=== PATIENT | male | born 1955 | race Caucasian/White ===

== ENCOUNTER 2020-01-30 09:30 | Day surgery (SDC) | payer OTHER ==
[~2020-01-30] VITALS: Ht 177.8 cm; Wt 99.8 kg
[2020-01-30] VITALS (8 sets, daily range): BP systolic 116–132; BP diastolic 72–81
[2020-01-30] MEDS ORDERED: Midazolam 2mg/2ml Inj ONE (10:31)
--- NOTE | 2020-01-30 10:51 | Short Stay Surgery H&P ---
History of Present Illness History of Present Illness Chief Complaint see attached HPI Bubba Wilburn is a 64 year old male who was admitted on for Blood In Stool Patient History Allergies: Coded Allergies: No Known Allergies (Unverified , 01/29/20) Physical Exam Vital Signs Last Vital Signs Date Time Temp Pulse Resp B/P (MAP) Pulse Ox O2 Delivery O2 Flow Rate FiO2 01/30/20 10:31 Room Air 01/30/20 10:04 97.4 51 18 127/79 95 Labs Laboratory Tests Test 01/30/20 10:09 POC Whole Blood Glucose 117 MG/DL (74-106) H Plan Attestation Are the patient's medical conditions optimized for surgery? Deandra Wilde MD Jan 30, 2020 10:51
--- NOTE | 2020-01-30 10:51 | Pre-Procedure Note/Attestation ---
Pre-Procedure Note/Attestation Complete Prior to Procedure Planned Procedure: not applicable Procedure Narrative: esophagogastroduodenoscopy colon Indications for Procedure Pre-Operative Diagnosis: Heme(+) Attestation I attest that I discussed the nature of the procedure; its benefits; risks and complications; and alternatives (and the risks and benefits of such alternatives), prior to the procedure, with the patient (or the patient's legal event representative). I attest that, if there was a reasonable possibility of needing a blood transfusion, the patient (or the patient's legal event representative) was given the [facility] standardized written summary, pursuant to the [place] Blood Safety Act ([place] Health and Safety Code # 1645, as amended). I attest that I re-evaluated the patient just prior to the surgery and that there has been no change in the patient's H&P, except as documented below: Deandra Wilde MD Jan 30, 2020 10:51
[2020-01-30] MEDS ORDERED: fentaNYL 100 mcg/2 mL IV ONE (11:00)
[2020-01-30] MEDS ORDERED: LR 1000ml ONE (11:00)
--- NOTE | 2020-01-30 11:13 | Anethesia Preoperative Eval ---
Anesthesia Pre-op PMH/ROS General Date of Evaluation: Jan 30, 2020 Time of Evaluation: 10:42 Anesthesiologist: Robby ASA Score: ASA 3 Mallampati Score Class I : Soft palate, uvula, fauces, pillars visible Class II: Soft palate, uvula, fauces visible Class III: Soft palate, base of uvula visible Class IV: Only hard plate visible Mallampati Classification: Class II Surgeon: Tobias Diagnosis: Abdominal pain Surgical Procedure: EGD Colonoscopy Anesthesia History: none Family History: no anesthesia problems Allergies: Coded Allergies: No Known Allergies (Unverified , 01/29/20) Medications: see eMAR Patient NPO?: Yes Past Medical History Cardiovascular: Reports: HTN; Denies: CAD, [place], valve dz, arrhythmia, other Pulmonary: Denies: asthma, COPD, MARCO, other Gastrointestinal/Genitourinary: Reports: GERD; Denies: CRI, ESRD, other Neurologic/Psychiatric: Denies: dementia, CVA, depression/anxiety, TIA, other Endocrine: Reports: DM; Denies: hypothyroidism, steroids, other HEENT: Denies: cataract (L), cataract (R), glaucoma, [place] (L), [place] (R), other Hematology/Immune: Denies: anemia, DVT, bleeding disorder, other Musculoskeletal/Integumentary: Denies: OA, RA, DJD, DDD, edema, other Other: obesity PMH Narrative: as above PSxH Narrative: See H&P Anesthesia Pre-op Phys. Exam Physician Exam Last Vital Signs Date Time Temp Pulse Resp B/P (MAP) Pulse Ox O2 Delivery O2 Flow Rate FiO2 01/30/20 10:31 Room Air 01/30/20 10:04 97.4 51 18 127/79 95 Constitutional: NAD Neurologic: CN 2-12 intact Cardiovascular: RRR, no M/R/G Respiratory: CTA Gastrointestinal: S/NT/ND Airway Exam Mallampati Score: Class II MO: full Neck: short ROM: full Teeth: intact Dentures: no upper, no lower Anesthesia Pre-op A/P Labs Chemistry Test 01/30/20 10:09 POC Whole Blood Glucose 117 MG/DL (74-106) H Risk Assessment & Plan Assessment: ASA 3 Plan: MAC Status Change Before Surgery: Remberto Haque MD Jan 30, 2020 11:13
[2020-01-30] MEDS ORDERED: fentaNYL 100 mcg/2 mL IV PRN (11:15)
[2020-01-30] MEDS ORDERED: LR 1000ml 1,000 ML IVLG SCH (11:15)
--- NOTE | 2020-01-30 11:34 | Endoscopy Procedure Note ---
Endoscopy Procedure Note General Indication for Procedure: heme (+) Procedures Performed: EGD, colonoscopy Operative Findings/Diagnosis: erosive gastritis, two lower esophageal gastric tongues, sig polyp at 30 Specimen: yes Pt Tolerated Procedure Well: Yes Estimated Blood Loss: none Anesthesia Anesthesiologist: angy Anesthesia: MAC Medications Medication Given: see anesthesia record Inserted Devices Implant(s) used?: No GI Core Measures 50 yrs or older w/o bx or poly: Not Applicable 10yrs. F/U recommended: Not Applicable Deandra Wilde MD Jan 30, 2020 11:33
--- NOTE | 2020-01-30 11:35 | Brief Operative Note ---
Immediate Post Operative Note Operative Note Chief Complaint: heme (+) Pre-op Diagnosis: Heme(+) Procedure: esophagogastroduodenoscopy colon Post-op Diagnosis: gastritis, r/o SSB, polyp at 30 Surgeon: rylee Anesthesiologist: see attached Specimen: yes Complications: none Condition: stable Fluids: per anesthesia Implant(s) used?: No Deandra Wilde MD Jan 30, 2020 11:35
--- NOTE | 2020-01-30 11:36 | Immediate Post-Op Evaluation ---
Immediate Post-Op Evalulation Immediate Post-Op Evalulation Procedure: EGD Colonoscopy Date of Evaluation: Jan 30, 2020 Time of Evaluation: 11:35 IV Fluids: 500 Blood Products: none Estimated Blood Loss: none Urinary Output: none Blood Pressure Systolic: 136 Blood Pressure Diastolic: 68 Pulse Rate: 62 Respiratory Rate: 18 O2 Sat by Pulse Oximetry: 99 Temperature (Fahrenheit): 97.6 Pain Score (1-10): 1 Nausea: No Vomiting: No Complications none Patient Status: awake, patent, none Hydration Status: adequate Remberto Bustamante MD Jan 30, 2020 11:36
--- NOTE | 2020-01-30 12:45 | Procedure Note ---
DATE OF PROCEDURE: 01/30/2020 SURGEON: Deandra Wilde MD. PROCEDURE: Upper gastrointestinal endoscopy with biopsy as well as colonoscopy with biopsy. ANESTHESIA: Please see the separate anesthesiologist notes for details. PRE-ENDOSCOPIC DIAGNOSIS: Heme-positive stools. POST-ENDOSCOPIC DIAGNOSES: 1. Mild erosive gastritis, status post biopsy. 2. Two 1 cm tongues of gastric colored mucosa above the gastroesophageal junction, status post biopsy. 3. Normal terminal ileum for about 15 cm. 4. Diminutive polyp in the sigmoid colon at 30 cm status post biopsy. RECOMMENDATIONS: 1. Followup biopsy results. 2. Outpatient followup. 3. Presumed cause of heme-positive stools is erosive gastritis, although a capsule endoscopy can be considered to evaluate small bowel as well. Deandra Wilde M.D. DR: True JOB#: [id number] CC: MD DEANDRA Almodovar M.D. ; FAX#: [phone] [id number]
[2020-01-30] MEDS ORDERED: JARDIANCE PO (13:01)
[2020-01-30] MEDS ORDERED: ATORVASTATIN CA20 MG ORAL (13:01)
[2020-01-30] MEDS ORDERED: LISINOPRIL10 MG ORAL (13:01)
[2020-01-30] MEDS ORDERED: JANUVIA25 MG ORAL (13:01)
[2020-01-30] MEDS ORDERED: METFORMIN HCL500 M1 ORAL (13:01)
== END 2020-01-30 12:35 | disposition home or self-care (01) ==
LOC: GAS 09:30
DX: K92.1 Melena (principal); R10.9 Unspecified abdominal pain; K21.00 Gastro-esophageal reflux disease with esophagitis, without bleeding; I10 Essential (primary) hypertension; E11.9 Type 2 diabetes mellitus without complications; E66.9 Obesity, unspecified; Z68.31 Body mass index [BMI] 31.0-31.9, adult; K29.50 Unspecified chronic gastritis without bleeding
CPT/HCPCS: 43239; 45380; 82962; 94003; J2250; J2704; J3010; J7120; U0002; 94150